=== PATIENT | female | born 1965 | race Caucasian/White ===

== ENCOUNTER 2016-03-17 18:13 | Emergency (ER) | payer OTHER ==
[~2016-03-17] VITALS: Ht 149.9 cm; Wt 76.2 kg
[~2016-03-17 18:13] MED LIST: ATORVASTATIN CA10 M1 PO; CETIRIZINE HCL10 M2 PO; DYMISTA NASAL S23 GM NASB; FIBERCON625 M1 PO; PRISTIQ ER50 MG PO; TREXIMET 85-501 EACH PO
--- NOTE | 2016-03-17 18:59 | ED AMS/SEIZURE/WEAK/DIZZY ---
History of Present Illness General Chief Complaint: General Adult Stated Complaint: PT FEELS DIZZY,SINUS PRESSURE,DON'T FEEL RIGHT Source: patient, old records Exam Limitations: no limitations Vital Signs & Intake/Output Vital Signs & Intake/Output Vital Signs Date Time Temp Pulse Resp B/P Pulse O2 O2 Flow FiO2 Ox Delivery Rate 03/17 2033 97.6 72 18 136/80 99 Room Air 03/17 1844 Room Air Room Air 03/17 182 97.3 70 18 142/82 99 Room Air Allergies Coded Allergies: amoxicillin (From AUGMENTIN) (Intermediate, VOMITING AND DIARRHEA 10/26/15) clavulanic acid (From AUGMENTIN) (Intermediate, VOMITING AND DIARRHEA 10/26/15) Reconcile Medications Atorvastatin Calcium 10 MG TABLET 1 TAB PO DAILY CHOLESTEROL (Reported) Azelastine/Fluticasone (Dymista Nasal [place]) 23 GM SPRAY.PUMP 1 SPRAY NASB QAM ALLERGIES (Reported) Calcium Polycarbophil (Fibercon) 625 MG TABLET 1 TAB PO DAILY SUPPLEMENT ( Reported) Cetirizine HCl 10 MG TABLET 1 TAB PO EOD ALLERGIES (Reported) Desvenlafaxine Succinate (Pristiq ER) 50 MG TAB.ER.24H 1 TAB PO DAILY MENTAL HEALTH (Reported) Meclizine HCl 25 MG TABLET 1 TAB PO TIDPRN PRN DIZZINESS Mometasone Furoate (Nasonex) 50 MCG SPRAY.PUMP 2 SPRAY NASB DAILY RHINITIS Sumatriptan Succ/Naproxen Sod (Treximet 85-500 MG Tablet) 1 EACH TABLET 1 TAB PO PRN MIGRAINES (Reported) Triage Note: PT STATES THAT SHE HAS BEEN HAVING INTERMITTANT DIZZINESS, SINUS PRESSURE, DENIES FEVERS/CP/SOB. WAS TREATED FOR SINUS INFECTION IN JANUARY Triage Nurses Notes Reviewed? yes Onset: Gradual Duration: week(s): (4), intermittent, waxing and waning Timing: recent history Injury Environment: home Severity: mild, moderate Severity Numbers: 5 Modifying Factors: Worsens With: other (HEAD MOVEMENT). Associated Symptoms: SINUS PRESSURE HPI: 50-year-old female with history of high cholesterol presents emergency room with a intermittent history of room spinning dizziness worse with head movement that she's had for the past 1 month. Patient states she was treated with antibiotics in January for a sinus infection however since then she has had frontal sinus pressure. She denies rhinorrhea congestion fever chills headache chest pain shortness of breath palpitations abdominal pain. She's not sought care for the symptoms until today however she states she is scheduled to see her primary care physician tomorrow. No history of vertigo no tinnitus no recent fall or head trauma no change in her mental status per family (SABRINA MARTEL) Past History Travel History Traveled to [place] past 21 day No Medical History Any Pertinent Medical History? see below for history Neurological: NONE EENT: NONE Cardiovascular: hyperlipidemia Respiratory: NONE Gastrointestinal: NONE Hepatic: NONE Renal: NONE Musculoskeletal: NONE Psychiatric: depression Endocrine: NONE Blood Disorders: NONE Cancer(s): NONE [employer]/Reproductive: NONE Surgical History Surgical History: non-contributory Psychosocial History What is your primary language Japanese Tobacco Use: Never used ETOH Use: denies use Illicit Drug Use: denies illicit drug use Family History Hx Contributory? No (SABRINA MARTEL) Review of Systems Review of Systems Constitutional: Reports: see HPI. All Other Systems: Reviewed and Negative Comments Review of systems: See HPI, All other systems negative. Constitutional, no chills no fever, no malaise HEENT: No visual changes no sore throat no congestion, no ear pain Cardiovascular: No chest pain , no palpitation , no orthopnea no ankle swelling Skin, no jaundice no rashes, no change in skin Respiratory: No dyspnea no cough no sputum GI: No nausea no vomiting, no diarrhea : No dysuria No hematuria, no frequency, no discharge Muscle skeletal: No joint pain, no joint swelling, no back pain Neurologic: No numbness no confusion, no headache Psych: No stress Heme/endocrine: No bruising no bleeding Immunology: No lymphadenopathy (SABRINA MARTEL) Physical Exam Physical Exam General Appearance: well developed/nourished, no apparent distress, alert, awake Comments: Well-developed well-nourished person in no acute distress HEENT: Normal EENT exam; PERRL, EOMI, no nystagmus. HEAD is atraumatic. moist mucous membranes. Neck: Supple, no lymphadenopathy, normal range of motion without pain or tenderness Back: Nontender, no CVA tenderness. Full range of motion Cardiovascular: Regular rate and rhythms no murmurs rubs Respiratory: No respiratory distress. Patient speaking in full complete sentences. Breath sounds clear to auscultation bilaterally: NO W/R/R Abdomen: Soft, nontender nondistended, no appreciable organomegaly. Normal bowel sounds. No rebound/guarding Extremity: No edema, full range of motion of extremities Neuro: Alert oriented x3, motor sensory normal,There were no obvious focal neurologic abnormalities. Skin: No appreciable rash on exposed skin, skin is warm and dry. Psych: Mood and affect is normal, memory and judgment is normal. Core Measures ACS in differential dx? No CVA/TIA Diagnosis: No Severe Sepsis Present: No Septic Shock Present: No (SABRINA MARTEL) Progress Differential Diagnosis: arrythmia, benign positional vertigo, CVA/stroke, dehydration, electrolyte imbalance, GI bleed, hypoglycemia, hypoxia, Meniere's disease, seizure disorder, subarachnoid Hem. Plan of Care: Orders Procedure Date/time Status CBC WITHOUT DIFFERENTIAL 03/17 1909 Complete BASIC METABOLIC PANEL 03/17 1909 Complete Laboratory Tests 03/17/161914: Anion Gap 8, Estimated GFR > 60, BUN/Creatinine Ratio 20.0, Glucose 88, Calcium 9.7, CBC w Diff NO MAN DIFF REQ, RBC 4.37, MCV 89.4, MCH 29.7, RDW 13.9, MPV 7.7 , Gran % 56.6, Lymphocytes % 31.3, Monocytes % 9.5 H, Eosinophils % 2.3, Basophils % 0.3, Absolute Granulocytes 4.9, Absolute Lymphocytes 2.7, Absolute Monocytes 0.8 H, Absolute Eosinophils 0.2, Absolute Basophils 0, PUBS MCHC 33.2 Labs ordered old records reviewed patient denies any symptoms at this time there are no neurologic deficits noted cranial nerves are within normal limits discussed with her that I do not believe the patient warrants any imaging given duration of symptoms which she is in agreement with I discussed with her at length all of her lab results she is scheduled to see her primary care physician tomorrow patient is ambulatory here in the emergency room with steady gait without any reproduction of patient's symptoms for meclizine and Mucinex provided she feels comfortable with this plan answered all her questions cleared for discharge (SABRINA MARTEL) Initial ED EKG: none (SABRINA MARTEL) Departure Departure Disposition: HOME OR SELF CARE Condition: Stable Clinical Impression Primary Impression: Vertigo Referrals: ELMER MCALLISTER MD (PCP/Family) Additional Instructions: FOLLOW UP WITH YOUR PMD SCHEDULED. MECLIZINE FOR DIZZINESS, NASONEX DISCUSSED FOR SINUS PRESSURE. RETURN WITH ANY CONCERNS THESE PRESCRIPTIONS WERE SENT TO YOUR PHARMACY Departure Forms: Customer Survey General Discharge Information Prescriptions: Current Visit Scripts Meclizine HCl 1 TAB PO TIDPRN PRN DIZZINESS #15 TAB Mometasone Furoate (Nasonex) 2 SPRAY NASB DAILY #1 INHAL (SABRINA MARTEL) PA/[employer]OR [employer] Co-Sign Statement Statement: ED Attending supervision documentation- [] I saw and evaluated the patient. I have also reviewed all the pertinent lab results and diagnostic results. I agree with the findings and the plan of care as documented in the PA's/[employer]'s documentation. x I have reviewed the ED Record and agree with the PA's/[employer]'s documentation. [] Additions or exceptions (if any) to the PAs/COL[employer]OR [employer]'s note and plan are summarized below: [] (SHIV DHALIWAL,KARLOS)
[2016-03-17 19:33] LABS: ABSOLUTE BASOPHIL COUNT 0 /CUMM (0.0-0.2); ABSOLUTE EOSINOPHIL COUNT 0.2 /CUMM (0.0-0.7); ABSOLUTE GRANULOCYTE CT 4.9 /CUMM (1.4-6.5); ABSOLUTE LYMPH COUNT 2.7 /CUMM (1.2-3.4); ABSOLUTE MONOCYTE COUNT 0.8 /CUMM (0.10-0.60); BASOPHIL % 0.3 % (0.0-2.0); EOSINOPHIL % 2.3 % (0-5); GRANULOCYTE % 56.6 % (42.2-75.2); HEMATOCRIT 39.1 % (37-47); MEAN CORPUSCULAR HGB 29.7 PG (27.0-31.0); MEAN CORPUSCULAR HGB CONC 33.2 G/DL (33.0-37.0); MEAN CORPUSCULAR VOLUME 89.4 FL (81.0-99.0); MEAN PLATELET VOLUME 7.7 FL (7.4-10.4); PLATELET COUNT 313 /CUMM (130-400); RBC DISTRIBUTION WIDTH 13.9 % (11.5-14.5); RED BLOOD CELL CT 4.37 /CUMM (4.20-5.40); WHITE BLOOD CELL COUNT 8.7 /CUMM (4.8-10.8)
[2016-03-17] MEDS ORDERED: NASONEX17 GM NASB (20:28)
[2016-03-17] MEDS ORDERED: MECLIZINE HCL25 MG PO (20:28)
[2016-03-17 20:34] VITALS: BP 136/80
== END 2016-03-17 20:35 ==
LOC: ERH 18:13
PROVIDERS: Physician Assistant Medical
DX: R42 Dizziness and giddiness (principal)